=== PATIENT | male | born 2000 | race Caucasian/White ===

== ENCOUNTER 2020-02-07 21:34 | Emergency (ER) | payer SELFPAY ==
[~2020-02-07] VITALS: Ht 177.8 cm; Wt 65.9 kg
--- OUTSIDE RECORDS SUMMARY | 2020-02-07 21:39 | XMS REPORT | Continuity of Care Document ---
Author Organization Unknown Address Unknown Phone Unavailable Allergies There is no data. Medications There is no data. Problems There is no data. Procedures There is no data. Results There is no data. Encounters ACCT No. Visit Date/Time Discharge Status Pt. Type Provider Facility Loc./Unit Complaint [id number] 12/10/2019 10:10:00 12/10/2019 23:59: 59 CLS Outpatient [facility] IN [facility]
--- NOTE | 2020-02-07 21:47 | ED GU-Male ---
General Chief Complaint: Abdominal/GI Problems Stated Complaint: ABD PAIN Source: patient Exam Limitations: no limitations History of Present Illness Date Seen by Provider: Feb 07, 2020 Time Seen by Provider: 21:40 Initial Comments 19-year-old male presents with burning and frequency of urination intermittently for 2 weeks, progressively worse over the past couple days. Denies fever chills or recent illness. Denies blood in his urine or penile discharge. Denies abdominal pain, nausea vomiting. Is having some back pain on his right side. Admits last sexual activity Jul 2019 Allergies and Home Medications Allergies Coded Allergies: No Known Drug Allergies (Unverified , 02/07/20) Home Medications Doxycycline Hyclate 100 Mg Tablet, 100 MG PO BID Prescribed by: KIRAN VOSS on 02/07/202258 Phenazopyridine HCl 200 Mg Tablet, 1 TAB PO BID Prescribed by: KIRAN VOSS on 02/07/202258 Patient Home Medication List Home Medication List Reviewed: Yes Review of Systems Review of Systems Constitutional: see HPI; No dizziness, No fever, No malaise, No weakness Gastrointestinal: No abdominal pain, No constipation, No diarrhea, No nausea, No vomiting Genitourinary: see HPI, burning; denies discharge; dysuria, frequency, flank pain; denies hematuria, denies incontinence; pain; denies urgency Musculoskeletal: back pain; No joint pain Skin: No change in color, No lesions, No lumps, No rash Past Shpqfsw-[id number]-Ieaabi Hx Past Med/Social Hx: Reviewed Nursing Past Med/Soc Hx Patient Social History Recent Foreign Travel: No Contact w/Someone Who Travel: No Physical Exam Vital Signs Vital Signs - First Documented 02/07/20 21:43 Temp 36.7 Pulse 88 Resp 16 B/P (MAP) 130/75 (93) Pulse Ox 98 O2 Delivery Room Air Capillary Refill : Height, Weight, BMI Height: '" Weight: lbs. oz. kg; BMI Method: General Appearance: WD/WN, no apparent distress Cardiovascular: regular rate, rhythm, no edema Respiratory: chest non-tender, lungs clear Gastrointestinal: soft; No distended, No guarding, No rebound; tenderness (generalized lower abdomen); No hernia, No mass, No hepatomegaly, No spleenomegaly Progress/Results/Core Measures Suspected Sepsis SIRS Temperature: Pulse: Respiratory Rate: Blood Pressure / Mean: Results/Orders Lab Results Laboratory Tests Test 02/07/20 22:40 Range/Units Urine Color YELLOW Urine Clarity CLEAR Urine pH 8.0 5-9 Urine Specific [place] 1.015 L 1.016-1.022 Urine Protein NEGATIVE NEGATIVE Urine Glucose (UA) NEGATIVE NEGATIVE Urine Ketones NEGATIVE NEGATIVE Urine Nitrite NEGATIVE NEGATIVE Urine Bilirubin NEGATIVE NEGATIVE Urine Urobilinogen 0.2 < = 1.0 MG/DL Urine Leukocyte Esterase NEGATIVE NEGATIVE Urine RBC (Auto) NEGATIVE NEGATIVE Urine RBC NONE /HPF Urine WBC NONE /HPF Urine Squamous Epithelial Cells 0-2 /HPF Urine Crystals PRESENT H /LPF Urine Bacteria NONE /HPF Urine Casts NONE /LPF Urine Mucus NEGATIVE /LPF Urine Culture Indicated NO My Orders Orders - KIRAN VOSS DO Urinalysis (02/07/20 21:43) Phenazopyridine Tablet (Pyridium Tablet) (02/07/20 23:00) Doxycycline Hyclate Tablet (Vibramycin T (02/07/20 23:00) Phenazopyridine Tablet (Pyridium Tablet) (02/07/20 23:12) Doxycycline Hyclate Tablet (Vibramycin T (02/07/20 23:12) Medications Given in ED Current Medications Medications Dose Ordered Sig/Bibiana Route Start Time Stop Time Status Last Admin Dose Admin Phenazopyridine HCl 100 mg ONCE ONCE PO 02/07/20 23:00 02/07/20 23:18 DC 02/07/20 23:17 100 MG Vital Signs/I&O 02/07/20 02/07/20 21:43 23:18 Temp 36.7 Pulse 88 61 Resp 16 12 B/P (MAP) 130/75 (93) 112/63 Pulse Ox 98 98 O2 Delivery Room Air Room Air Capillary Refill : Progress Note : Progress Note Normal UA and no Discharge, however having Urethritis sx.....will tx empirically for Chlamydia Departure Impression Primary Impression: Urethritis Disposition: 01 HOME, SELF-CARE Condition: Stable Departure-Patient Inst. Decision time for Depature: 22:58 Patient Instructions: Urethritis (DC) Scripts Phenazopyridine HCl (Pyridium) 200 Mg Tablet 1 TAB PO BID, #6 TAB Prov: KIRAN VOSS DO 02/07/20 Doxycycline Hyclate (Doxycycline Hyclate) 100 Mg Tablet 100 MG PO BID, #14 TAB 0 Refills Prov: ROVENSTINE,KIRAN L DO 02/07/20 KIRAN VOSS DO Feb 07, 2020 21:47
[2020-02-07 22:53] LABS: BILIRUBIN,URINE NEGATIVE (NEGATIVE); CLARITY,URINE CLEAR; COLOR,URINE YELLOW; GLUCOSE, URINE (UA) NEGATIVE (NEGATIVE); KETONES,URINE NEGATIVE (NEGATIVE); LEUKOCYTE ESTERASE ,URINE NEGATIVE (NEGATIVE); NITRITE,URINE NEGATIVE (NEGATIVE); PROTEIN,URINE NEGATIVE (NEGATIVE); SQUAMOUS EPITHELIAL CELL,UR 0-2 /HPF
[2020-02-07] MEDS ORDERED: PHEN-640 PO (22:59)
[2020-02-07] MEDS ORDERED: DOXY100T2 PO (22:59)
[2020-02-07] MEDS ORDERED: PHENAZOPYRIDINE 100 MG (PYRIDIUM) TABLET PO ONE (23:00)
[2020-02-07] MEDS ORDERED: DOXYCYCLINE 100 MG (VIBRAMYCIN) TABLET PO SCH (23:00)
[2020-02-07] MEDS ORDERED: PHENAZOPYRIDINE 100 MG (PYRIDIUM) TABLET ONE (23:12)
[2020-02-07] MEDS ORDERED: DOXYCYCLINE 100 MG (VIBRAMYCIN) TABLET ONE (23:12)
[2020-02-07 23:18] VITALS: BP 112/63
== END 2020-02-07 23:18 | disposition home or self-care (01) ==
LOC: ER FS 21:36
DX: N34.2 Other urethritis (principal)
CPT/HCPCS: 81000; 99283